=== PATIENT | female | born 1955 | race Hispanic/Latino ===

== ENCOUNTER 2022-01-21 14:14 | Emergency (ER) | payer BC, OTHER ==
--- OUTSIDE RECORDS SUMMARY | 2022-01-21 14:17 | XMS REPORT | Continuity of Care Document ---
:1955 Author Organization [facility] t Address [address] [place] [address] Care Team Providers Name Role Phone BRIAN NAGEL Primary Care Physician JIAGR Rod Attending Clinician Unavailable Payers Payer Name Policy Type Policy Number Effective Date Expiration Date S ource BCBS PPO POS EPO [id number] 2019 00:00:00 CHOICE Problems Condition Condition Condition Status Onset Resolution Last Treating Co mments Source Name Details Category Date Date Treatment Clinician Date Screening Screening Disease Active [facility] endocrine, 00:00: Me dical metabolic metabolic 00 Cent er and and immunity immunity disorder disorder Class 1 Class 1 Disease Active Last [facility] obesity obesity 2-07 Assessmen [facility] due to due to 00:00: t & Plan: Medical excess excess 00 [facility]ly [facility] calories calories g of this without without note serious serious might be comorbidit comorbidit different y with y with from the body mass body mass original. index index Body mass (BMI) of (BMI) of index is 30.0 to 30.0 to 30.64 30.9 in 30.9 in kg/m2. adult adult The patient was encourage d to initiate a weight reduction regimen that is to consist of a balanced healthy, low sugar and low carb diet in addition to exercise. This should improve not only his general health, but also his liver disease by michael reilly a major risk factor for fatty liver disease. Cancer Cancer Disease Active Last [facility] screening screening 2 Assessmen Jaycob arnold 00:00: t & Plan: Medical 00 [facility] g of this note might be different from the original. The annual incidence of HCC exceeds 0.2 percent in female above the age of 50 and she needs HCC screening every 6 months. I ordered AFP and abdominal ultrasoun d. Chronic Chronic Disease Active [facility] viral viral 06-27 [facility] hepatitis hepatitis 00:00: t & Plan: M edical B without B without 00 Formattin C enter delta delta g of this agent and agent and note without without might be coma coma different from the original. She has chronic hepatitis B infection with low viral load. I ordered testing for HBV replicati on HBeAg, anti-HBe and repeat HBV DNA and abdominal ultrasoun d to assess for chronic liver disease/ cirrhosis and signs if portal hypertens ion. Noninvasi ve assessmen ts of liver fibrosis and measureme nt of liver stiffness and fat content with fibroscan . I suspect that she she currently does not meet criteria for treatment as her aminotran sferases are normal and low HBD DNA viral load. She needs monitorin g of HBV DNA and ALT every 3-6 months and HBeAg every 6-120 months. She needs screening for hepatocel lular carcinoma as discussed below. Allergies, Adverse Reactions, Alerts Allergy Allergy Status Severity Reaction(s) Onset Inactive Treating Comm ents Source Name Type Date Date Clinician NO KNOWN Allergy Active [facility] Family History Family Member Diagnosis Comments Start Date Stop Date Source Natural mother Diabetes [facility] Natural mother Hypertension [facility] Social History Social Habit Start Date Stop Date Quantity Comments Source Tobacco use and 2019-07-05 2019-07-05 Never used [facility] exposure 00:00:00 00:00:00 [facility] Center Alcohol intake 2019-07-05 2019-07-05 Current drinker [facility] S tuan [facility] 00:00:00 00:00:00 of alcohol Medical Center (finding) Sex Ass[birth year] At [birth year] [facility] 00:00:00 00:00:00 [facility] Center Smoking Status Start Date Stop Date Source Never smoker [facility] Medications Ordered Filled Start Stop Current Ordering Indication Dosage Frequency Signature Comments Components Source Medication Medication Date Date Medication? Clinician (SIG) Name Name amLODIPine Yes 5mg Q.5D Take [address] [facility] [address] [facility] (NORVASC) 5 6-19 by mouth 2 Tita kes MG tablet 10:56: (two) Medical 01 times Center daily. gabapentin 2018- Yes 100mg Take [address] [facility] [address] (NEURONTIN) 2-21 mg by [facility] 100 MG 00:00: mouth 3 Medical capsule 00 (three) Center times daily as needed. tiZANidine Yes every [facility] (ZANAFLEX) 2-21 night as [facility] 4 MG tablet 00:00: needed. Med ical 00 Center Vital Signs Vital Name Observation Time Observation Value Comments Source HEIGHT 2019-11-09 00:00:00 149.9 cm WEIGHT 2019-11-09 00:00:00 71.986 kg Procedures This patient has no known procedures. Plan of Care Planned Activity Planned Date Details Comments Source Future Scheduled 2022-01-21 INFLUENZA VACCINE (#1) [facility] 00:00:00 [code = INFLUENZA Medical Ce nter VACCINE (#1)] Future Scheduled 2021-05-[address] [facility] Test 00:00:00 (12+) [code = Medical Center DEPRESSION SCREENING (12+)] Future Scheduled 2007 SHINGLES VACCINES ([address] [facility] Test 00:00:00 2) [code = SHINGLES Medical Center VACCINES (1 of 2)] Future Scheduled 2002 Lipid panel (procedure) [facility] Test 00:00:00 [code = 05141666] Medical Ce nter Future Scheduled 1978 Screening for malignant [facility] Test 00:00:00 neoplasm of cervix Medical C enter (procedure) [code = 408306692] Future Scheduled 1976 DTAP/TDAP/TD VACCINES [facility] Test 00:00:00 (1 - Tdap) [code = Medical C enter DTAP/TDAP/TD VACCINES (1 - Tdap)] Future Scheduled 1975 HEPATITIS C [facility]CRE[facility]ING [facility] 00:00:00 [code = HEPATITIS C Medical Center SCREENING] Future Scheduled 1955 COVID-19 VACCINE (#1) [facility] 00:00:00 [code = COVID-[address] VACCINE (#1)] Future Scheduled 1957 Screening for malignant [facility] Test 00:00:00 neoplasm of breast Medical C enter (procedure) [code = 765813688] Future Scheduled 1957 CT Colonography (combo) [facility] Test 00:00:00 [code = CT Colonography [facility] (combo)] Future Scheduled 1957 Screening for malignant [facility] Test 00:00:00 neoplasm of colon Medical Ce nter (procedure) [code = 453434325] Future Scheduled 1957 Screening for malignant [facility] Test 00:00:00 neoplasm of colon Medical Ce nter (procedure) [code = 616563916] Future Scheduled 1957 Screening for malignant [facility] Test 00:00:00 neoplasm of colon Medical Ce nter (procedure) [code = 448405196] Future Scheduled 1957 Screening for malignant [facility] Test 00:00:00 neoplasm of colon Medical Ce nter (procedure) [code = 484969549] Future Scheduled 1955 Sigmoidoscopy [code = [facility] 00:[facility] S[facility]oscopy] Medical Cente r Encounters Start End Encounter Admission Attending Care Care Encounter Source Date/Time Date/Time Type Type Clinicians Facility Department ID 2020-04-30 2020-04-30 Outpatient [facility] [id number] [facility] 00:00:00 00:00:00 2020-02-11 2020-02-11 Outpatient [facility] [id number] [facility] 00:00:00 00:00:00 2019-11-20 2019-11-20 Outpatient ALL, [facility] [id number] [facility] 00:00:00 00:00:00 JIGAR 2019-11-09 2019-11-09 Outpatient [facility] [id number] [facility] 00:00:00 00:00:00 2019-11-09 2019-11-09 Outpatient [facility] [id number] [facility] 00:00:00 00:00:00 Results Test Description Test Time Test Comments Results Result Comments Source HEPATITIS B PCR, QUANTITATIVE 2019-11-10 13:49:00 Test Item Value Reference Range Interpretation Comme nts HBV NUMERIC RESULT (BEAKER) (test code = 2702) 75 IU/mL <20 H This test uses a Real-Time Polymerase Chain Reaction (RT-PCR) methodology and was performed using GABY AmpliPrep/GABY TaqMan HBV Test, v2.0 ([employer]Reportable range for this assay is 20 - 170,000,000 IU per mL (1.30 - 8.23 Log IU/mL).HEPATIC FUNCTION [id number] 10:04:00 Test Item Value Reference Range Interpretation Comments TOTAL PROTEIN (BEAKER) (test code = 7.3 gm/dL 6.0-8.3 770) ALBUMIN (BEAKER) (test code = 1145) 4.0 g/dL 3.5-5.0 BILIRUBIN TOTAL (BEAKER) (test code 0.5 mg/dL 0.2-1.2 = 377) BILIRUBIN DIRECT (BEAKER) (test 0.2 mg/dL 0.1-0.5 code = 706) ALKALINE PHOSPHATASE (BEAKER) (test 95 U/L 40-150 code = 346) AST (SGOT) (BEAKER) (test code = 19 U/L 5-34 353) ALT (SGPT) (BEAKER) (test code = 13 U/L 6-55 347) 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 - LEILANI MBASIC METABOLIC [id number] 10:04:00 Test Item Value Reference Range Interpretation Comments SODIUM (BEAKER) 142 meq/L 136-145 (test code = 381) POTASSIUM (BEAKER) 3.9 meq/L 3.5-5.1 (test code = 379) CHLORIDE (BEAKER) 109 meq/L 98-107 H (test code = 382) CO2 (BEAKER) (test 26 meq/L 22-29 code = 355) BLOOD UREA NITROGEN 14 mg/dL 7-21 (BEAKER) (test code = 354) CREATININE (BEAKER) 0.67 mg/dL 0.57-1.25 (test code = 358) GLUCOSE RANDOM 99 mg/dL 70-105 (BEAKER) (test code = 652) CALCIUM (BEAKER) 9.1 mg/dL 8.4-10.2 (test code = 697) EGFR (BEAKER) (test 89 mL/min/1.73 ESTIMA GAB GFR IS code = 1092) sq m NOT ACCURATE CREATININE CLEARANCE IN PREDICTING GLOMERULAR FILTRATION RATE . ESTIMATED GFR I S NOT APPLICABLE FOR DIALYSIS PATIEN TS. 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 - LEILANI MCBC W/PLT COUNT & AUTO [id number] 09:48:00 Test Item Value Reference Range Interpretation Comments WHITE BLOOD CELL COUNT (BEAKER) 7.2 K/ L 3.5-10.5 (test code = 775) RED BLOOD CELL COUNT (BEAKER) 4.89 M/ L 3.93-5.22 (test code = 761) HEMOGLOBIN (BEAKER) (test code = 14.2 GM/DL 11.2-15.7 410) HEMATOCRIT (BEAKER) (test code = 44.1 % 34.1-44.9 411) MEAN CORPUSCULAR VOLUME (BEAKER) 90.2 fL 79.4-94.8 (test code = 753) MEAN CORPUSCULAR HEMOGLOBIN 29.0 pg 25.6-32.2 (BEAKER) (test code = 751) MEAN CORPUSCULAR HEMOGLOBIN CONC 32.2 GM/DL 32.2-35.5 (BEAKER) (test code = 752) RED CELL DISTRIBUTION WIDTH 13.1 % 11.7-14.4 (BEAKER) (test code = 412) PLATELET COUNT (BEAKER) (test 249 K/CU MM 150-450 code = 756) MEAN PLATELET VOLUME (BEAKER) 10.3 fL 9.4-12.3 (test code = 754) NUCLEATED RED BLOOD CELLS 0 /100 WBC 0-0 (BEAKER) (test code = 413) NEUTROPHILS RELATIVE PERCENT 61 % (BEAKER) (test code = 429) LYMPHOCYTES RELATIVE PERCENT 29 % (BEAKER) (test code = 430) MONOCYTES RELATIVE PERCENT 6 % (BEAKER) (test code = 431) EOSINOPHILS RELATIVE PERCENT 3 % (BEAKER) (test code = 432) BASOPHILS RELATIVE PERCENT 1 % (BEAKER) (test code = 437) NEUTROPHILS ABSOLUTE COUNT 4.38 K/ L 1.56-6.13 (BEAKER) (test code = 670) LYMPHOCYTES ABSOLUTE COUNT 2.10 K/ L 1.18-3.74 (BEAKER) (test code = 414) MONOCYTES ABSOLUTE COUNT (BEAKER) 0.46 K/ L 0.24-0.36 H (test code = 415) EOSINOPHILS ABSOLUTE COUNT 0.23 K/ L 0.04-0.36 (BEAKER) (test code = 416) BASOPHILS ABSOLUTE COUNT (BEAKER) 0.04 K/ L 0.01-0.08 (test code = 417) IMMATURE GRANULOCYTES-RELATIVE 0 % 0-1 PERCENT (BEAKER) (test code = 2801) HEPATITIS B PCR, [id number] 16:45:00 Test Item Value Reference Range Interpretation Comments HBV NUMERIC RESULT (BEAKER) (test 52 IU/mL <20 H code = 8722) This test uses a Real-Time Polymerase Chain Reaction (RT-PCR) methodology and was performed using GABY AmpliPrep/GABY TaqMan HBV Test, v2.0 ([employer]Reportable range for this assay is 20 - 170,000,000 IU per mL (1.30 - 8.23 Log IU/mL).HEPATIC FUNCTION [id number] 14:43:00 Test Item Value Reference Range Interpretation Comments TOTAL PROTEIN (BEAKER) (test code = 7.5 gm/dL 6.0-8.3 770) ALBUMIN (BEAKER) (test code = 1145) 4.1 g/dL 3.5-5.0 BILIRUBIN TOTAL (BEAKER) (test code 0.7 mg/dL 0.2-1.2 = 377) BILIRUBIN DIRECT (BEAKER) (test 0.3 mg/dL 0.1-0.5 code = 706) ALKALINE PHOSPHATASE (BEAKER) (test 94 U/L 40-150 code = 346) AST (SGOT) (BEAKER) (test code = 19 U/L 5-34 353) ALT (SGPT) (BEAKER) (test code = 15 U/L 6-55 347) 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 - LEILANI MBASIC METABOLIC [id number] 14:43:00 Test Item Value Reference Range Interpretation Comments SODIUM (BEAKER) 139 meq/L 136-145 (test code = 381) POTASSIUM (BEAKER) 3.6 meq/L 3.5-5.1 (test code = 379) CHLORIDE (BEAKER) 107 meq/L 98-107 (test code = 382) CO2 (BEAKER) (test 25 meq/L 22-29 code = 355) BLOOD UREA NITROGEN 9 mg/dL 7-21 (BEAKER) (test code = 354) CREATININE (BEAKER) 0.64 mg/dL 0.57-1.25 (test code = 358) GLUCOSE RANDOM 89 mg/dL 70-105 (BEAKER) (test code = 652) CALCIUM (BEAKER) 9.1 mg/dL 8.4-10.2 (test code = 697) EGFR (BEAKER) (test 94 mL/min/1.73 ESTIMA GAB GFR IS code = 1092) sq m NOT ACCURATE CREATININE CLEARANCE IN PREDICTING GLOMERULAR FILTRATION RATE . ESTIMATED GFR I S NOT APPLICABLE FOR DIALYSIS PATIEN TS. 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 - LEILANI MCBC W/PLT COUNT & AUTO [id number] 14:25:00 Test Item Value Reference Range Interpretation Comments WHITE BLOOD CELL COUNT (BEAKER) 6.0 K/ L 3.5-10.5 (test code = 775) RED BLOOD CELL COUNT (BEAKER) 5.02 M/ L 3.93-5.22 (test code = 761) HEMOGLOBIN (BEAKER) (test code = 14.6 GM/DL 11.2-15.7 410) HEMATOCRIT (BEAKER) (test code = 43.9 % 34.1-44.9 411) MEAN CORPUSCULAR VOLUME (BEAKER) 87.5 fL 79.4-94.8 (test code = 753) MEAN CORPUSCULAR HEMOGLOBIN 29.1 pg 25.6-32.2 (BEAKER) (test code = 751) MEAN CORPUSCULAR HEMOGLOBIN CONC 33.3 GM/DL 32.2-35.5 (BEAKER) (test code = 752) RED CELL DISTRIBUTION WIDTH 13.4 % 11.7-14.4 (BEAKER) (test code = 412) PLATELET COUNT (BEAKER) (test 233 K/CU MM 150-450 code = 756) MEAN PLATELET VOLUME (BEAKER) 10.7 fL 9.4-12.3 (test code = 754) NUCLEATED RED BLOOD CELLS 0 /100 WBC 0-0 (BEAKER) (test code = 413) NEUTROPHILS RELATIVE PERCENT 51 % (BEAKER) (test code = 429) LYMPHOCYTES RELATIVE PERCENT 38 % (BEAKER) (test code = 430) MONOCYTES RELATIVE PERCENT 8 % (BEAKER) (test code = 431) EOSINOPHILS RELATIVE PERCENT 3 % (BEAKER) (test code = 432) BASOPHILS RELATIVE PERCENT 1 % (BEAKER) (test code = 437) NEUTROPHILS ABSOLUTE COUNT 3.06 K/ L 1.56-6.13 (BEAKER) (test code = 670) LYMPHOCYTES ABSOLUTE COUNT 2.27 K/ L 1.18-3.74 (BEAKER) (test code = 414) MONOCYTES ABSOLUTE COUNT (BEAKER) 0.46 K/ L 0.24-0.36 H (test code = 415) EOSINOPHILS ABSOLUTE COUNT 0.18 K/ L 0.04-0.36 (BEAKER) (test code = 416) BASOPHILS ABSOLUTE COUNT (BEAKER) 0.04 K/ L 0.01-0.08 (test code = 417) IMMATURE GRANULOCYTES-RELATIVE 0 % 0-1 PERCENT (BEAKER) (test code = 2801) HEPATITIS B PCR, [id number] 12:24:00 Test Item Value Reference Range Interpretation Comments HBV NUMERIC RESULT (BEAKER) (test 114 IU/mL <20 H code = 2702) This test uses a Real-Time Polymerase Chain Reaction (RT-PCR) methodology and was performed using GABY AmpliPrep/GABY TaqMan HBV Test, v2.0 ([employer]Reportable range for this assay is 20 - 170,000,000 IU per mL (1.30 - 8.23 Log IU/mL).HEPATITIS B PCR, [id number] 06:51:00 Test Item Value Reference Range Interpretation Comments HBV NUMERIC RESULT (BEAKER) (test 77 IU/mL <20 H code = 2702) This test uses a Real-Time Polymerase Chain Reaction (RT-PCR) methodology and was performed using GABY AmpliPrep/GABY TaqMan HBV Test, v2.0 ([employer]Reportable range for this assay is 20 - 170,000,000 IU per mL (1.30 - 8.23 Log IU/mL).U/S, ABDOMINAL, [id number] 14:26:00Referring: Dr. Brian Jimenez assess for HCCReason for Exam:->HBV assess for HCCFINAL REPORT TECHNIQUE: Grayscale ultrasound of the abdomen. INDICATION: 64-year-old woman with hepatitis B. COMPARISON: Abdomen ultrasound 07/05/2018. FINDINGS: MIDLINE VASCULATURE: The visualized inferior vena cava is patent. Portal vein is patent and measures 1 cm in diameter. The maximum visualized aortic diameter is 2.3 cm. LIVER: The liver is normal in size and echogenicity with smooth contour. No focal lesions. BILIARY:Gallbladder: Prior cholecystectomy.Common bile duct measures 0.4 cm, within normal limits. No intrahepatic biliary ductal dilatation. PANCREAS: Visualized portions of the pancreas are unremarkable. SPLEEN: No splenomegaly. PERITONEUM: No free fluid. KIDNEYS: Both kidneys are normal in size. No hydronephrosis. No sonographically evident solid mass lesion. IMPRESSION:Unremarkable appearance of the liver. Signed: Lorene Ndiaye MDReport Verified Date/Time:03/16/2019 14:26:07 Reading Location: [address] Radiology Reading Room ALPHA FETOPROTEIN (AFP), TUMOR MARKER 2019-03-16 11:58:00 Test Item Value Reference Range Interpretation Comments ALPHA-FETOPROTEIN (BEAKER) (test 9.9 ng/mL <10.0 code = 1094) HEPATIC FUNCTION [id number] 11:43:00 Test Item Value Reference Range Interpretation Comments TOTAL PROTEIN (BEAKER) (test code = 7.8 gm/dL 6.0-8.3 770) ALBUMIN (BEAKER) (test code = 1145) 4.2 g/dL 3.5-5.0 BILIRUBIN TOTAL (BEAKER) (test code 0.7 mg/dL 0.2-1.2 = 377) BILIRUBIN DIRECT (BEAKER) (test 0.3 mg/dL 0.1-0.5 code = 706) ALKALINE PHOSPHATASE (BEAKER) (test 100 U/L 40-150 code = 346) AST (SGOT) (BEAKER) (test code = 19 U/L 5-34 353) ALT (SGPT) (BEAKER) (test code = 14 U/L 6-55 347) BASIC METABOLIC [id number] 11:43:00 Test Item Value Reference Range Interpretation Comments SODIUM (BEAKER) 143 meq/L 136-145 (test code = 381) POTASSIUM (BEAKER) 4.3 meq/L 3.5-5.1 (test code = 379) CHLORIDE (BEAKER) 107 meq/L 98-107 (test code = 382) CO2 (BEAKER) (test 28 meq/L 22-29 code = 355) BLOOD UREA NITROGEN 12 mg/dL 7-21 (BEAKER) (test code = 354) CREATININE (BEAKER) 0.67 mg/dL 0.57-1.25 (test code = 358) GLUCOSE RANDOM 98 mg/dL 70-105 (BEAKER) (test code = 652) CALCIUM (BEAKER) 9.2 mg/dL 8.4-10.2 (test code = 697) EGFR (BEAKER) (test 89 mL/min/1.73 ESTIMA GAB GFR IS code = 1092) sq m NOT ACCURATE CREATININE CLEARANCE IN PREDICTING GLOMERULAR FILTRATION RATE . ESTIMATED GFR I S NOT APPLICABLE FOR DIALYSIS PATIEN TS. CBC W/PLT COUNT & AUTO [id number] 11:06:00 Test Item Value Reference Range Interpretation Comments WHITE BLOOD CELL COUNT (BEAKER) 5.8 K/ L 3.5-10.5 (test code = 775) RED BLOOD CELL COUNT (BEAKER) 5.29 M/ L 3.93-5.22 H (test code = 761) HEMOGLOBIN (BEAKER) (test code = 15.3 GM/DL 11.2-15.7 410) HEMATOCRIT (BEAKER) (test code = 47.3 % 34.1-44.9 H 411) MEAN CORPUSCULAR VOLUME (BEAKER) 89.4 fL 79.4-94.8 (test code = 753) MEAN CORPUSCULAR HEMOGLOBIN 28.9 pg 25.6-32.2 (BEAKER) (test code = 751) MEAN CORPUSCULAR HEMOGLOBIN CONC 32.3 GM/DL 32.2-35.5 (BEAKER) (test code = 752) RED CELL DISTRIBUTION WIDTH 13.2 % 11.7-14.4 (BEAKER) (test code = 412) PLATELET COUNT (BEAKER) (test 280 K/CU MM 150-450 code = 756) MEAN PLATELET VOLUME (BEAKER) 10.2 fL 9.4-12.3 (test code = 754) NUCLEATED RED BLOOD CELLS 0 /100 WBC 0-0 (BEAKER) (test code = 413) NEUTROPHILS RELATIVE PERCENT 55 % (BEAKER) (test code = 429) LYMPHOCYTES RELATIVE PERCENT 35 % (BEAKER) (test code = 430) MONOCYTES RELATIVE PERCENT 7 % (BEAKER) (test code = 431) EOSINOPHILS RELATIVE PERCENT 2 % (BEAKER) (test code = 432) BASOPHILS RELATIVE PERCENT 1 % (BEAKER) (test code = 437) NEUTROPHILS ABSOLUTE COUNT 3.16 K/ L 1.56-6.13 (BEAKER) (test code = 670) LYMPHOCYTES ABSOLUTE COUNT 2.01 K/ L 1.18-3.74 (BEAKER) (test code = 414) MONOCYTES ABSOLUTE COUNT (BEAKER) 0.40 K/ L 0.24-0.36 H (test code = 415) EOSINOPHILS ABSOLUTE COUNT 0.14 K/ L 0.04-0.36 (BEAKER) (test code = 416) BASOPHILS ABSOLUTE COUNT (BEAKER) 0.04 K/ L 0.01-0.08 (test code = 417) IMMATURE GRANULOCYTES-RELATIVE 0 % 0-1 PERCENT (BEAKER) (test code = 2801) HEPATITIS B PCR, [id number] 14:06:00 Test Item Value Reference Range Interpretation Comments HBV NUMERIC RESULT (BEAKER) (test 88 IU/mL <20 H code = 4882) This test uses a Real-Time Polymerase Chain Reaction (RT-PCR) methodology and was performed using GABY AmpliPrep/GABY TaqMan HBV Test, v2.0 ([employer]Reportable range for this assay is 20 - 170,000,000 IU per mL (1.30 - 8.23 Log IU/mL).ALPHA FETOPROTEIN (AFP), TUMOR [id number] 11:41:00 Test Item Value Reference Range Interpretation Comments ALPHA-FETOPROTEIN (BEAKER) (test 9.2 ng/mL <10.0 code = 1094) HEPATIC FUNCTION [id number] 10:46:00 Test Item Value Reference Range Interpretation Comments TOTAL PROTEIN (BEAKER) (test code = 7.7 gm/dL 6.0-8.3 770) ALBUMIN (BEAKER) (test code = 1145) 4.2 g/dL 3.5-5.0 BILIRUBIN TOTAL (BEAKER) (test code 0.5 mg/dL 0.2-1.2 = 377) BILIRUBIN DIRECT (BEAKER) (test 0.2 mg/dL 0.1-0.5 code = 706) ALKALINE PHOSPHATASE (BEAKER) (test 94 U/L 40-150 code = 346) AST (SGOT) (BEAKER) (test code = 23 U/L 5-34 353) ALT (SGPT) (BEAKER) (test code = 15 U/L 6-55 347) HEPATIC FUNCTION [id number] 10:15:00 Test Item Value Reference Range Interpretation Comments TOTAL PROTEIN (BEAKER) 7.8 gm/dL 6.0-8.3 Speci men slightly (test code = 770) hemolyzed ALBUMIN (BEAKER) (test 4.1 g/dL 3.5-5.0 Speci men slightly code = 1145) hemolyzed BILIRUBIN TOTAL 0.6 mg/dL 0.2-1.2 Specimen sli ghtly (BEAKER) (test code = hemoly zed 377) BILIRUBIN DIRECT 0.2 mg/dL 0.1-0.5 Specimen sl ightly (BEAKER) (test code = hemoly zed 706) ALKALINE PHOSPHATASE 104 U/L 40-150 (BEAKER) (test code = 346) AST (SGOT) (BEAKER) 20 U/L 5-34 Specimen slightly (test code = 353) hemolyzed ALT (SGPT) (BEAKER) 12 U/L 6-55 Specimen slightly (test code = 347) hemolyzed U/S, ABDOMINAL, [id number] 15:07:00Referring: Dr. Brian Davidson for Exam:->chronic HBV. HCC screening. does she have evidence of cirrhosis/ portal hypertension?FINAL REPORT TECHNIQUE: Grayscale ultrasound of the abdomen. INDICATION: chronic HBV. HCC screening. does she have evidence of cirrhosis/ portal hypertension?. COMPARISON: None. FINDINGS: MIDLINE VASCULATURE: The visualized inferior vena cava is patent. Portal vein is patent. The maximum visualized aortic diameter is 2.5 cm. LIVER: Smooth liver contour. No focal lesions. The mainportal vein measures 1 cm. BILIARY:Gallbladder: Prior cholecystectomy.Common bile duct measures 0.5 cm, within normal limits. No intrahepatic biliary ductal dilatation. PANCREAS: Incompletely visualized due to overlying bowel gas. The partially visualized pancreatic neck and body are normal. SPLEEN: No splenomegaly. The spleen measures 7.9 cm. PERITONEUM: No free fluid. KIDNEYS: Normal in size bilaterally. No hydronephrosis. No sonographically evident solid mass lesion. IMPRESSION: No definitive signs for cirrhosis or portal hypertension. No focal hepatic lesions. Signed: Zachery Cruz MDReport Verified Date/Time: 07/05/2018 15:07:13 Reading Location: [address] Radiology Reading Room MISCELLANEOUS LAB [id number] 13:38:00 Test Item Value Reference Range Interpretation Comments SCAN RESULT (test code = 1742712) HEPATITIS B PCR, [id number] 19:47:00 Test Item Value Reference Range Interpretation Comments HBV NUMERIC RESULT (BEAKER) (test 204 IU/mL <20 H code = 2702) This test uses a Real-Time Polymerase Chain Reaction (RT-PCR) methodology and was performed using [employer] AmpliPrep/GABY TaqMan HBV Test, v2.0 ([employer]Reportable range for this assay is 20 - 170,000,000 IU per mL (1.30 - 8.23 Log IU/mL).HEPATITIS B SURFACE [id number] 19:49:00 Test Item Value Reference Range Interpretation Comments HEPATITIS B SURFACE ANTIBODY < mIU/mL <8.0 (BEAKER) (test code = 647) HEPATITIS B CORE ANTIBODY, [id number] 19:49:00 Test Item Value Reference Range Interpretation Comments HEPATITIS B CORE TOTAL ANTIBODY Reactive Nonreactive A (BEAKER) (test code = 497) ALPHA FETOPROTEIN (AFP), TUMOR [id number] 19:47:00 Test Item Value Reference Range Interpretation Comments ALPHA-FETOPROTEIN (BEAKER) (test 10.1 ng/mL <10.0 H code = 1094) HEPATIC FUNCTION [id number] 17:39:00 Test Item Value Reference Range Interpretation Comments TOTAL PROTEIN (BEAKER) (test code = 7.9 gm/dL 6.0-8.3 770) ALBUMIN (BEAKER) (test code = 1145) 4.3 g/dL 3.5-5.0 BILIRUBIN TOTAL (BEAKER) (test code 0.8 mg/dL 0.2-1.2 = 377) BILIRUBIN DIRECT (BEAKER) (test 0.3 mg/dL 0.1-0.5 code = 706) ALKALINE PHOSPHATASE (BEAKER) (test 90 U/L 40-150 code = 346) AST (SGOT) (BEAKER) (test code = 19 U/L 5-34 353) ALT (SGPT) (BEAKER) (test code = 10 U/L 6-55 347) BASIC METABOLIC [id number] 17:39:00 Test Item Value Reference Range Interpretation Comments SODIUM (BEAKER) 141 meq/L 136-145 (test code = 381) POTASSIUM (BEAKER) 3.5 meq/L 3.5-5.1 (test code = 379) CHLORIDE (BEAKER) 105 meq/L 98-107 (test code = 382) CO2 (BEAKER) (test 26 meq/L 22-29 code = 355) BLOOD UREA NITROGEN 9 mg/dL 7-21 (BEAKER) (test code = 354) CREATININE (BEAKER) 0.63 mg/dL 0.57-1.25 (test code = 358) GLUCOSE RANDOM 92 mg/dL 70-105 (BEAKER) (test code = 652) CALCIUM (BEAKER) 9.5 mg/dL 8.4-10.2 (test code = 697) EGFR (BEAKER) (test 96 mL/min/1.73 ESTIMA GAB GFR IS code = 1092) sq m NOT ACCURATE CREATININE CLEARANCE IN PREDICTING GLOMERULAR FILTRATION RATE . ESTIMATED GFR I S NOT APPLICABLE FOR DIALYSIS PATIEN TS. CBC W/PLT COUNT & AUTO [id number] 16:54:00 Test Item Value Reference Range Interpretation Comments WHITE BLOOD CELL COUNT (BEAKER) 7.8 K/ L 3.5-10.5 (test code = 775) RED BLOOD CELL COUNT (BEAKER) 4.98 M/ L 3.93-5.22 (test code = 761) HEMOGLOBIN (BEAKER) (test code = 14.5 GM/DL 11.2-15.7 410) HEMATOCRIT (BEAKER) (test code = 45.0 % 34.1-44.9 H 411) MEAN CORPUSCULAR VOLUME (BEAKER) 90.4 fL 79.4-94.8 (test code = 753) MEAN CORPUSCULAR HEMOGLOBIN 29.1 pg 25.6-32.2 (BEAKER) (test code = 751) MEAN CORPUSCULAR HEMOGLOBIN CONC 32.2 GM/DL 32.2-35.5 (BEAKER) (test code = 752) RED CELL DISTRIBUTION WIDTH 13.2 % 11.7-14.4 (BEAKER) (test code = 412) PLATELET COUNT (BEAKER) (test 258 K/CU MM 150-450 code = 756) MEAN PLATELET VOLUME (BEAKER) 10.3 fL 9.4-12.3 (test code = 754) NUCLEATED RED BLOOD CELLS 0 /100 WBC 0-0 (BEAKER) (test code = 413) NEUTROPHILS RELATIVE PERCENT 64 % (BEAKER) (test code = 429) LYMPHOCYTES RELATIVE PERCENT 29 % (BEAKER) (test code = 430) MONOCYTES RELATIVE PERCENT 6 % (BEAKER) (test code = 431) EOSINOPHILS RELATIVE PERCENT 1 % (BEAKER) (test code = 432) BASOPHILS RELATIVE PERCENT 1 % (BEAKER) (test code = 437) NEUTROPHILS ABSOLUTE COUNT 4.98 K/ L 1.56-6.13 (BEAKER) (test code = 670) LYMPHOCYTES ABSOLUTE COUNT 2.23 K/ L 1.18-3.74 (BEAKER) (test code = 414) MONOCYTES ABSOLUTE COUNT (BEAKER) 0.44 K/ L 0.24-0.36 H (test code = 415) EOSINOPHILS ABSOLUTE COUNT 0.06 K/ L 0.04-0.36 (BEAKER) (test code = 416) BASOPHILS ABSOLUTE COUNT (BEAKER) 0.04 K/ L 0.01-0.08 (test code = 417) IMMATURE GRANULOCYTES-RELATIVE 0 % 0-1 PERCENT (BEAKER) (test code = 4594)
[2022-01-21] MEDS ORDERED: LIDOCAINE 1% MPF 5 ML VIAL ONE (15:29)
--- NOTE | 2022-01-21 15:36 | EDPHYS ---
Physician Documentation [facility] Name: Adeline Krishnamurthy Age: 66 yrs Sex: Female : 1955 Arrival Date: 01/21/2022 Time: 14:16 Bed Treatment Private MD: ED Physician Aguilar Soria HPI: 01/21 14:44 This 66 yrs old Female presents to ER via Ambulatory with complaints of jl9 laceration to head and right arm. Patient reports that she got tangled up with a dog while arguing with her daughter and she fell and hit her head. Denies LOC. . 14:44 Details of fall: The patient fell from an upright position. Onset: The symptoms/episode jl9 began/occurred just prior to arrival. Associated injuries: The patient sustained injury to the head, laceration, Right forearm and head. . Severity of symptoms: in the emergency department the symptoms a " 2" out of "10". Historical: - Allergies: 15:54 No Known Allergies; hb - Immunization history: Last tetanus immunization: > 10 years ago. - Social history:: Smoking status: Patient denies any tobacco usage or history of. ROS: 14:45 Constitutional: Negative for fever, chills, and weight loss, Eyes: Negative for injury, jl9 pain, redness, and discharge, ENT: Negative for injury, pain, and discharge, Neck: Negative for injury, pain, and swelling, Cardiovascular: Negative for chest pain, palpitations, and edema, Respiratory: Negative for shortness of breath, cough, wheezing, and pleuritic chest pain, Abdomen/GI: Negative for abdominal pain, nausea, vomiting, diarrhea, and constipation, Back: Negative for injury and pain, : Negative for injury, bleeding, discharge, and swelling, MS/Extremity: Negative for injury and deformity. 14:45 Neuro: Negative for headache, weakness, numbness, tingling, and seizure, Psych: Negative for depression, anxiety, suicide ideation, homicidal ideation, and hallucinations, Allergy/Immunology: Negative for hives, rash, and allergies, Endocrine: Negative for neck swelling, polydipsia, polyuria, polyphagia, and marked weight changes, Hematologic/Lymphatic: Negative for swollen nodes, abnormal bleeding, and unusual bruising. 14:45 Skin: Positive for laceration(s), Mid parietal and right forearm. . Exam: 14:46 Constitutional: This is a well developed, well nourished patient who is awake, alert, jl9 and in no acute distress. Eyes: Pupils equal round and reactive to light, extra-ocular motions intact. Lids and lashes normal. Conjunctiva and sclera are non-icteric and not injected. Cornea within normal limits. Periorbital areas with no swelling, redness, or edema. ENT: Mucous membranes moist. Neck: Trachea midline, no thyromegaly or masses palpated, and no cervical lymphadenopathy. Supple, full range of motion without nuchal rigidity, or vertebral point tenderness. No Meningismus. Chest/axilla: Normal chest wall appearance and motion. Nontender with no deformity. No lesions are appreciated. Cardiovascular: Regular rate and rhythm with a normal S1 and S2. No gallops, murmurs, or rubs. Normal PMI, no JVD. No pulse deficits. Respiratory: Lungs have equal breath sounds bilaterally, clear to auscultation and percussion. No rales, rhonchi or wheezes noted. No increased work of breathing, no retractions or nasal flaring. 14:46 Abdomen/GI: Soft, non-tender, with normal bowel sounds. No distension or tympany. No guarding or rebound. No evidence of tenderness throughout. Back: No spinal tenderness. No costovertebral tenderness. Full range of motion. 14:46 MS/ Extremity: Pulses equal, no cyanosis. Neurovascular intact. Full, normal range of motion. Neuro: Awake and alert, GCS 15, oriented to person, place, time, and situation. Cranial nerves II-XII grossly intact. Motor strength 5/5 in all extremities. Sensory grossly intact. Cerebellar exam normal. Normal gait. Psych: Awake, alert, with orientation to person, place and time. Behavior, mood, and affect are within normal limits. 14:46 Head/face: Noted is a laceration(s), 5 cm(s), of the top of head. 14:46 Skin: 2cm right forearm laceration. . Vital Signs: 14:35 BP 152 / 116; Pulse 103; Temp 98.1; Pulse Ox 98% ; Weight 68.04 kg; Height 4 ft. 10 in. ph (147.32 cm); Pain 0/10; 15:30 BP 150 / 88; Pulse 86; Resp 16; Pulse Ox 100% on R/A; Pain 4/10; hb 14:35 Body Mass Index 31.35 (68.04 kg, 147.32 cm) ph Austin Coma Score: 14:35 Eye Response: spontaneous(4). Verbal Response: oriented(5). Motor Response: obeys ph commands(6). Total: 15. Trauma Score (Adult): 14:35 Eye Response: spontaneous(1); Verbal Response: oriented(1); Motor Response: obeys ph commands(2); Systolic BP: > 89 mm Hg(4); Respiratory Rate: 10 to 29 per min(4); Cathy Score: 15; Trauma Score: 12 15:30 Eye Response: spontaneous(1); Verbal Response: oriented(1); Motor Response: obeys hb commands(2); Systolic BP: > 89 mm Hg(4); Respiratory Rate: 10 to 29 per min(4); Austin Score: 15; Trauma Score: 12 Laceration: 15:33 Wound Repair of 5cm ( 2.0in ) subcutaneous laceration. Distal neuro/vascular/tendon jl9 intact. Anesthesia: Local anesthetic administered with 4 mls of 1% lidocaine. Wound prep: Simple cleansing with betadine. Skin closed with 12 Lauren using staple gun. Dressed with 4x4's. Patient tolerated well. 15:33 Wound Repair of 2cm ( 0.8in ) subcutaneous laceration to right arm. Distal jl9 neuro/vascular/tendon intact. Anesthesia: Local anesthetic administered with 1% lidocaine. Wound prep: Simple cleansing with betadine. Skin closed with 3 Prolene using staple gun. Dressed with 4x4's. Patient tolerated well. MDM: 14:44 Patient medically screened. jl9 14:47 Data reviewed: vital signs, nurses notes. jl9 15:32 Counseling: I had a detailed discussion with the patient and/or guardian regarding: the jl9 historical points, exam findings, and any diagnostic results supporting the discharge/admit diagnosis, lab results, the need for outpatient follow up, to return to the emergency department if symptoms worsen or persist or if there are any questions or concerns that arise at home. 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 Exp: 08/01/2023. Lot hb #: [id number]. } Route: IM; Site: left deltoid; 15:51 Follow up: Response: No adverse reaction hb Disposition: 16:52 Co-signature as Attending Physician, Aguilar Soria DO I was immediately available on-site ms3 in the emergency department for consultation in the care of the patient.. Disposition Summary: 01/21/22 15:36 Discharge Ordered Location: Home jl9 Condition: Stable jl9 Diagnosis - Hand Laceration/ Open wound of hand jl9 Followup: jl9 - With: Private Physician - When: 1 - 2 days - Reason: Wound Recheck, Recheck today's complaints, Continuance of care, Re-evaluation by your physician Discharge Instructions: - Discharge Summary Sheet jl9 - Laceration Care, Adult, [id number] jl9 Forms: - Medication Reconciliation Form jl9 - Thank You Letter jl9 - Antibiotic Education jl9 - Prescription Opioid Use jl9 Prescriptions: - Doxycycline Hyclate 100 mg Oral Tablet - take 1 tablet by ORAL route every 12 hours; 20 tablet; Refills: 0, Product jl9 Selection Permitted Signatures: Angelica Woodard RN RN Ashley Naranjo, MARKUS RN Aguilar Soria DO DO ms3 Aaron Orr jl9
--- NOTE | 2022-01-21 15:36 | ER ---
Nurse's Notes [facility] Name: Adeline Krishnamurthy Age: 66 yrs Sex: Female : 1955 Arrival Date: 01/21/2022 Time: 14:16 Bed Treatment Private MD: Diagnosis: Hand Laceration/ Open wound of hand Presentation: 01/21 14:35 Chief complaint: Patient states: Patient and daughter were arguing, daughters dog bit ph her, then she fell and hit head, no LOC, has laceration to head and to right forearm. Care prior to arrival: washed with soap and water. Mechanism of Injury: Fall fell from standing position, ground level. Trauma event details: Injury occurred in the [facility], Injury occurred: at home. Injury occurred: January 21, 2022 Injury occurred at: 13:00. 14:35 Acuity: DOREEN 3 ph 14:35 Method Of Arrival: Ambulatory ph 15:15 Initial Sepsis Screen: Does the patient meet any 2 criteria? No. Patient's initial hb sepsis screen is negative. Does the patient have a suspected source of infection? No. Patient's initial sepsis screen is negative. 15:15 Coronavirus screen: At this time, the client does not indicate any symptoms associated hb with coronavirus-19. Ebola Screen: No symptoms or risks identified at this time. Risk Assessment: Do you want to hurt yourself or someone else? Patient reports no desire to harm self or others. Onset of symptoms was January 21, 2022. Trauma Activation: Not Applicable Physician: ED Physician; Name: ; Notified At: ; Arrived At: Physician: General Surgeon; Name: ; Notified At: ; Arrived At: Physician: Radiology; Name: ; Notified At: ; Arrived At: Physician: Respiratory; Name: ; Notified At: ; Arrived At: Physician: Lab; Name: ; Notified At: ; Arrived At: Historical: - Allergies: 15:54 No Known Allergies; hb - Immunization history: Last tetanus immunization: > 10 years ago. - Social history:: Smoking status: Patient denies any tobacco usage or history of. Screenin:35 Abuse screen: Denies threats or abuse. Tuberculosis screening: No symptoms or risk ph factors identified. 15:30 Nutritional screening: No deficits noted. Fall Risk None identified. hb Primary Survey: 14:35 NO uncontrolled hemorrhage observed. A: The client is awake and alert. The airway is ph patent. Breathing/Chest: Spontaneous respiratory effort, equal unlabored respirations, breath sounds clear bilaterally, regular pattern, symmetrical chest rise and fall. Circulation: No external hemorrhage present. Regular and strong central pulse, skin warm/dry/normal color. Disability Pupils are equal, round, reactive to light and accommodation. Client is alert. Exposure/Environment: There is no evidence of uncontrolled external bleeding. Obvious injury(ies) are noted at this time: scalp laceration and right forearm lac A warming method has been applied:. 15:30 Reassessment Alertness and Airway: Awake and alert. The airway is patent. Breathing: hb Spontaneous respiratory effort, equal unlabored respirations, breath sounds clear bilaterally, regular pattern with symmetrical chest rise and fall. Circulation: No external hemorrhage noted. Regular and strong central pulse, skin warm/dry/normal color. Disability: Alert. Secondary Survey: 15:30 HEENT: No deficits noted. Gastrointestinal: No deficits noted. : No deficits noted. hb Musculoskeletal: No signs and/or symptoms reported regarding the musculoskeletal system. Assessment: 14:35 General: Appears in no apparent distress. Behavior is calm, cooperative, appropriate ph for age. Pain: Denies pain. 15:30 Reassessment: Patient appears in no apparent distress at this time. Patient and/or hb family updated on plan of care and expected duration. Pain level reassessed. Patient is alert, oriented x 3, equal unlabored respirations, skin warm/dry/pink. Vital Signs: 14:35 BP 152 / 116; Pulse 103; Temp 98.1; Pulse Ox 98% ; Weight 68.04 kg; Height 4 ft. 10 in. ph (147.32 cm); Pain 0/10; 15:30 BP 150 / 88; Pulse 86; Resp 16; Pulse Ox 100% on R/A; Pain 4/10; hb 14:35 Body Mass Index 31.35 (68.04 kg, 147.32 cm) ph Cathy Coma Score: 14:35 Eye Response: spontaneous(4). Verbal Response: oriented(5). Motor Response: obeys ph commands(6). Total: 15. Trauma Score (Adult): 14:35 Eye Response: spontaneous(1); Verbal Response: oriented(1); Motor Response: obeys ph commands(2); Systolic BP: > 89 mm Hg(4); Respiratory Rate: 10 to 29 per min(4); Cathy Score: 15; Trauma Score: 12 15:30 Eye Response: spontaneous(1); Verbal Response: oriented(1); Motor Response: obeys hb commands(2); Systolic BP: > 89 mm Hg(4); Respiratory Rate: 10 to 29 per min(4); Cathy Score: 15; Trauma Score: 12 ED Course: 14:16 Patient arrived in ED. rg4 14:27 Aaron Orr is PHCP. jl9 14:27 Aguilar Soria DO is Attending Physician. jl9 14:35 Patient has correct armband on for positive identification. ph 14:40 Triage completed. ph 14:44 Arm band placed on Patient placed in waiting room, Patient notified of wait time. ph 15:10 Thermoregulation: warm blanket given to patient. hb 15:19 Ashley Naranjo, RN is Primary Nurse. hb 15:30 Patient maintains SpO2 saturation greater than 95% on room air. hb 15:54 No provider procedures requiring assistance completed. Patient did not have IV access hb during this emergency room visit. 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 Exp: 08/01/2023. Lot hb #: [id number]. } Route: IM; Site: left deltoid; 15:51 Follow up: Response: No adverse reaction hb Medication: 15:35 Vaccine Information Statement (VIS) provided today. Questions and/or concerns hb addressed. VIS edition date: January 21, 2022. Intake: 14:35 PO: 0ml; Total: 0ml. ph Output: 14:35 Urine: 0ml; Total: 0ml. ph Outcome: 15:36 Discharge ordered by . jl9 15:53 Discharged to home ambulatory. hb 15:53 Condition: stable 15:53 Discharge instructions given to patient, Instructed on discharge instructions, follow up and referral plans. medication usage, Demonstrated understanding of instructions, follow-up care, medications, Prescriptions given X 1. 15:53 Patient's length of stay was not longer than 2 hours. 15:55 Patient left the ED. hb Signatures: Woodard, Angelica, MARKUS RN ph Ashley Naranjo RN RN Wandy Oquendo4 Aaron Orr 9
[2022-01-21] MEDS ORDERED: TETANUS & DIPHTHERIA TOX,ADULT 0.5 ML VIAL ONE (15:54)
[2022-01-21 16:45] VITALS: TEMP 98.1
[2022-01-21 16:47] VITALS: BP 150/88; O2SAT 100
== END 2022-01-21 15:55 | disposition home or self-care (01) ==
LOC: ER 14:14
PROC: 0JQG0ZZ Repair Right Lower Arm Subcutaneous Tissue and Fascia, Open Approach (ICD-10-PCS; principal; 2022-01-21)
DX: S51.811A Laceration without foreign body of right forearm, initial encounter (principal); S01.91XA Laceration without foreign body of unspecified part of head, initial encounter; Z23 Encounter for immunization
CPT/HCPCS: 90471; 90714; 99284